=== PATIENT | female | born 1970 | race African-American/Black ===

== ENCOUNTER 2023-10-22 12:47 | Outpatient (CLI) | payer OTHER, SELFPAY | END 2023-10-22 12:48 | disposition home or self-care (01) | LOC: LKVREF 12:48 | PROVIDERS: PCP Physician Assistant Medical; Visit Provider Nurse Practitioner Family | DX: I10 Essential (primary) hypertension (principal) | CPT/HCPCS: 80053 ==

== ENCOUNTER 2023-11-30 08:43 | Outpatient (CLI) | payer OTHER, SELFPAY | END 2023-11-30 08:44 | disposition home or self-care (01) | LOC: NFLDREF 12-02 13:01 | PROVIDERS: PCP Nurse Practitioner Family; Referring Provider Physician Assistant Medical; Visit Provider Nurse Practitioner Family | DX: Z13.29 Encounter for screening for other suspected endocrine disorder (principal); E78.5 Hyperlipidemia, unspecified; R73.09 Other abnormal glucose | CPT/HCPCS: 80061; 82947; 84443 ==

== ENCOUNTER 2024-11-30 10:24 | Outpatient (CLI) | payer OTHER, SELFPAY ==
[2024-12-02 20:28] LABS: HPV Source Cervix
[2024-12-06 08:54] LABS: Pap Test Digital Imaging Done
== END 2024-11-30 10:25 | disposition home or self-care (01) ==
PROVIDERS: PCP Nurse Practitioner Family; Visit Provider Nurse Practitioner Family
DX: Z11.51 Encounter for screening for human papillomavirus (HPV) (principal); Z12.4 Encounter for screening for malignant neoplasm of cervix; I10 Essential (primary) hypertension; E78.5 Hyperlipidemia, unspecified
CPT/HCPCS: 80053; 80061; 87624; 87625; 88141; 88142; 88175

== ENCOUNTER 2025-01-19 13:21 | Emergency (ER) | payer OTHER, SELFPAY ==
[2025-01-19 13:33] VITALS: BP 150/82; PULSE 62; RESP 20; TEMP 37.7; O2SAT 98; BMI 28.7
== END 2025-01-19 16:29 | disposition left against medical advice (07) ==
PROVIDERS: PCP Nurse Practitioner Family
DX: Z53.21 Procedure and treatment not carried out due to patient leaving prior to being seen by health care provider (principal)